=== PATIENT | female | born 1995 | race Caucasian/White ===

== ENCOUNTER 2016-12-04 04:25 | Emergency (ER) | payer BC, OTHER ==
[~2016-12-04] VITALS: Ht 162.6 cm; Wt 59.0 kg
[2016-12-04 04:33] VITALS: BP 115/72
[2016-12-04] MEDS ORDERED: JOLETAB PO (04:36)
== END 2016-12-04 05:34 | disposition left against medical advice (07) ==
LOC: M ED 05:11
DX: R10.9 Unspecified abdominal pain (principal); Z53.21 Procedure and treatment not carried out due to patient leaving prior to being seen by health care provider

== ENCOUNTER → 2016-12-04 | Outpatient (CLI) | payer OTHER ==
[~2016-12-04] MED LIST: JOLETAB PO
[2016-12-04 10:44] LABS: ALBUMIN/GLOBULIN RATIO 1.25 (1.00-1.93); ALKALINE PHOSPHATASE 32 U/L (45-117); ALT/SGPT 20 U/L (12-78); AMYLASE 67 U/L (25-115); ANION GAP 8 MEQ/L (8-16); AST/SGOT 10 U/L (15-37); BILIRUBIN,DIRECT 0.1 MG/DL (0.0-0.2); BILIRUBIN,TOTAL 0.3 MG/DL (0.2-1.0); BLOOD UREA NITROGEN 10 MG/DL (7-18); CALCIUM LEVEL 8.6 MG/DL (8.5-10.1); CARBON DIOXIDE LEVEL 26 MEQ/L (21-32); CHLORIDE LEVEL 106 MEQ/L (98-107); GLOMERULAR FILTRATION RATE > 60.0 (>60); GLUCOSE, FASTING 82 MG/DL (70-105); SODIUM LEVEL 140 MEQ/L (136-145); TOTAL PROTEIN 7.2 GM/DL (6.4-8.2)
--- NOTE | 2016-12-04 10:55 | REP ---
Clinical: Acute abdominal and flank pain. Technique: Lofton scale ultrasound using curved array transducer. Findings: The liver, spleen and pancreas are normal in contour, size, and echogenicity without focal hepatic, splenic or pancreatic lesions identified. The gallbladder is normal without gallstones, wall thickening or pericholecystic fluid. No biliary ductal dilatation is appreciated, and the common bile duct measures 2.9 mm diameter. The kidneys demonstrate innumerable bilateral cysts consistent with the given history of polycystic kidney disease. The right kidney measures approximately 14.9 x 6.4 x 5.6 cm with the largest cyst measuring 6.7 cm maximal diameter and apparently painful with transducer pressure. The left kidney measures 13.0 x 6.4 x 6.7 cm with small scattered cysts up to roughly 1.6 cm. Visualized abdominal aorta normal. No ascites. Impression: 1. A 6.7 cm right renal cyst causing pain with transducer pressure related to patient's right flank pain. 2. Known polycystic kidney disease. 3. Normal appearance to the liver, spleen, pancreas and gallbladder/biliary system. Signed by Zoran Falk MD 12/04/2016 10:47 A
[2016-12-04 12:20] LABS: BASO % 0.7 % (0.0-1.0); EOS % 0.4 % (0.0-3.0); LARGE UNSTAINED CELL # 0.1 K/mm3 (0.0-0.4); LARGE UNSTAINED CELL % 1.1 % (0.0-4.0); LYMPH # 1.6 K/mm3 (1.5-6.5); LYMPH % 24.7 % (24.0-44.0); MEAN CORPUSCULAR HEMOGLOBIN 29.9 pg (27.0-33.0); MEAN CORPUSCULAR HGB CONC 33.6 g/dl (32.0-36.5); MONO # 0.3 K/mm3 (0.0-0.8); MONO % 4.6 % (0.0-5.0); NEUTROPHILS # 4.5 K/mm3 (1.8-7.7); NEUTROPHILS % 68.5 % (36.0-66.0); PLATELET COUNT, AUTOMATED 317 k/mm3 (150-450); RED CELL DISTRIBUTION WIDTH 11.9 % (11.5-14.5); WHITE BLOOD COUNT 6.6 K/mm3 (4.0-10.0)
== END ==
LOC: M LAB 09:24
PROVIDERS: ATTEND Physician Assistant
DX: R10.11 Right upper quadrant pain (principal); Q61.3 Polycystic kidney, unspecified

== ENCOUNTER → 2017-11-25 | Outpatient (REF) | payer OTHER | LOC: M SFHCWAGY 10:22 | DX: Z12.4 Encounter for screening for malignant neoplasm of cervix (principal) ==

== ENCOUNTER → 2017-11-26 | Outpatient (CLI) | payer OTHER | LOC: M WHC 14:01 | DX: N94.6 Dysmenorrhea, unspecified (principal) | CPT/HCPCS: 76856 ==

== ENCOUNTER → 2018-03-11 | Outpatient (CLI) | payer OTHER | LOC: M RAD 07:59 | DX: Q61.2 Polycystic kidney, adult type (principal) | CPT/HCPCS: 76775 ==

== ENCOUNTER → 2018-05-28 | Outpatient (CLI) | payer OTHER ==
[2018-05-28 12:33] LABS: BASO % 0.7 % (0.0-1.0); EOS # 0.2 10^3/uL (0.0-0.50); EOS % 3.1 % (0.0-3.0); HEMATOCRIT 38.3 % (36.0-47.0); HEMOGLOBIN 12.7 g/dl (12.0-15.5); IMMATURE GRANULOCYTE % 0.3 % (0-3.0); LYMPH # 2.1 10^3/uL (1.5-6.5); MEAN CORPUSCULAR HEMOGLOBIN 30.5 pg (27.0-33.0); MEAN CORPUSCULAR HGB CONC 33.2 g/dl (32.0-36.5); MEAN CORPUSCULAR VOLUME 92.1 fl (80.0-96.0); MONO # 0.3 10^3/uL (0.0-0.8); MONO % 4.6 % (0.0-5.0); NEUTROPHILS # 3.5 10^3/uL (1.8-7.7); NEUTROPHILS % 57.3 % (36.0-66.0); PLATELET COUNT, AUTOMATED 242 10^3/uL (150-450); RED BLOOD COUNT 4.16 10^6/uL (4.00-5.40); RED CELL DISTRIBUTION WIDTH 11.8 % (11.5-14.5); WHITE BLOOD COUNT 6.1 10^3/uL (4.0-10.0)
[2018-05-28 13:06] LABS: ALBUMIN/GLOBULIN RATIO 1.18 (1.00-1.93); ALKALINE PHOSPHATASE 35 U/L (45-117); ALT/SGPT 17 U/L (12-78); ANION GAP 8 MEQ/L (8-16); AST/SGOT 11 U/L (7-37); BILIRUBIN,TOTAL 0.3 MG/DL (0.2-1.0); BLOOD UREA NITROGEN 10 MG/DL (7-18); CALCIUM LEVEL 8.7 MG/DL (8.5-10.1); CARBON DIOXIDE LEVEL 28 MEQ/L (21-32); CHLORIDE LEVEL 103 MEQ/L (98-107); CREATININE FOR GFR 0.55 MG/DL (0.55-1.30); FREE T4 0.91 NG/DL (0.76-1.46); GLOMERULAR FILTRATION RATE > 60.0 (>60); GLUCOSE, FASTING 78 MG/DL (70-100); SODIUM LEVEL 139 MEQ/L (136-145); TOTAL PROTEIN 7.4 GM/DL (6.4-8.2)
== END ==
LOC: M WUC 10:06
DX: F41.9 Anxiety disorder, unspecified (principal)
CPT/HCPCS: 84443

== ENCOUNTER → 2018-10-20 | Outpatient (REF) | payer OTHER ==
[2018-10-20 13:47] LABS: HCG, SERUM QUALITATIVE NEGATIVE (NEGATIVE)
== END ==
LOC: M SFHCPLAZ 10:58
PROVIDERS: ATTEND Physician Assistant
DX: N92.6 Irregular menstruation, unspecified (principal)

== ENCOUNTER → 2019-03-02 | Outpatient (CLI) | payer OTHER ==
--- NOTE | 2019-03-02 13:24 | REP ---
Clinical: Polycystic kidney disease. Comparison: 03/11/2018. Technique: Real time morgan scale ultrasound examination using curved array transducer. Findings: Kidneys demonstrate bilateral cysts consistent with a history of polycystic kidney disease. Right kidney measures 15.0 x 5.3 x 5.8 cm with the largest cyst measuring approximately 6.7 x 4.9 x 6.0 cm at the lower pole. Left kidney measures 13.0 x 5.5 x 5.6 cm with the largest cyst measuring approximately 1.8 x 1.6 x 1.8 cm at the lower pole. No significant change from prior examination. No discernible mass lesion or hydronephrosis. Impression: Polycystic kidney disease essentially unchanged from prior examination. Electronically Signed by Zoran Falk MD 03/02/2019 01:16 P
== END ==
LOC: M RAD 12:09
PROVIDERS: ATTEND Internal Medicine Nephrology
DX: Q61.2 Polycystic kidney, adult type (principal)

== ENCOUNTER → 2019-07-25 | Outpatient (CLI) | payer OTHER ==
[2019-07-25 08:53] LABS: BASO % 0.4 % (0.0-1.0); EOS # 0.1 10^3/uL (0.0-0.5); EOS % 1.9 % (0.0-3.0); HEMATOCRIT 37.3 % (36.0-47.0); HEMOGLOBIN 12.7 g/dl (12.0-15.5); LYMPH # 1.8 10^3/uL (1.5-5.0); LYMPH % 24.3 % (24.0-44.0); MEAN CORPUSCULAR HEMOGLOBIN 31.2 pg (27.0-33.0); MEAN CORPUSCULAR VOLUME 91.6 fl (80.0-96.0); MONO # 0.4 10^3/uL (0.0-0.8); MONO % 5.4 % (0.0-5.0); NEUTROPHILS # 5.1 10^3/uL (1.5-8.5); NEUTROPHILS % 67.7 % (36.0-66.0); PLATELET COUNT, AUTOMATED 255 10^3/uL (150-450); RED BLOOD COUNT 4.07 10^6/uL (4.00-5.40); WHITE BLOOD COUNT 7.5 10^3/uL (4.0-10.0)
[2019-07-25 09:17] LABS: CREATININE,RANDOM URINE 43.9 MG/DL; TOTAL PROTEIN,RANDOM URINE 8.7 MG/DL (0.0-12.0)
[2019-07-25 09:21] LABS: ALBUMIN 4.3 GM/DL (3.2-5.2); ALT/SGPT 31 U/L (12-78); BILIRUBIN,TOTAL 0.4 MG/DL (0.2-1.0); BLOOD UREA NITROGEN 8 MG/DL (7-18); CALCIUM LEVEL 9.2 MG/DL (8.5-10.1); CARBON DIOXIDE LEVEL 26 MEQ/L (21-32); CHLORIDE LEVEL 104 MEQ/L (98-107); CREATININE FOR GFR 0.46 MG/DL (0.55-1.30); GLOMERULAR FILTRATION RATE > 60.0 (>60); GLUCOSE, FASTING 73 MG/DL (70-100); POTASSIUM SERUM 3.8 MEQ/L (3.5-5.1); SODIUM LEVEL 137 MEQ/L (136-145); TOTAL PROTEIN 7.6 GM/DL (6.4-8.2)
[2019-07-25 10:27] LABS: RUBELLA IgG QUALITATIVE IMMUNE (IMMUNE)
[2019-07-25 10:56] LABS: HIV 1&2 SCREEN CENTAUR NEGATIVE (NEGATIVE)
[2019-07-25 11:06] LABS: CHLAMYDIA DNA AMPLIFICATION NEGATIVE (NEGATIVE); GC DNA AMPLIFICATION NEGATIVE (NEGATIVE)
== END ==
LOC: M LAB 07:52
PROVIDERS: ATTEND Advanced Practice Midwife
DX: Z34.81 Encounter for supervision of other normal pregnancy, first trimester (principal)

== ENCOUNTER → 2019-07-28 | Outpatient (CLI) | payer OTHER | LOC: M LAB 07:22 | PROVIDERS: ATTEND Advanced Practice Midwife | DX: Z34.82 Encounter for supervision of other normal pregnancy, second trimester (principal) ==

== ENCOUNTER → 2019-09-20 | Outpatient (CLI) | payer OTHER ==
--- NOTE | 2019-09-21 04:45 | REP ---
Clinical: Anatomical evaluation. Comparison: None . Findings: Examination demonstrates a single live intrauterine in variable presentation. motion is identified by technologist. Placenta is noted anterior and grade zero without evidence for placenta previa or abruption. Amniotic fluid volume is normal. Cervix measures 5.2 cm in length and appears closed. Nuchal cord cannot be excluded. Gestational age by current measurements 19 weeks to date with KAYODE 02/12/2020 . FHR equals 149 beats per minute. BPD 4.4 cm 19 weeks 3 days HC 15.9 cm 18 weeks 5 days AC 14.2 cm 19 weeks 4 days FL 3.0 cm 19 weeks 2 days HL 2.9 cm 19 weeks 3 days HC/AC ratio 1.12 Estimated weight 288 grams ( 49th percentile). Anatomical assessment demonstrates normal structures including cranium, choroid plexus, cavum, diaphragm, stomach, cord insertion, bladder, and extremities. Impression: 1. Single live intrauterine in variable presentation demonstrating appropriate interval growth. 2. Nuchal cord cannot be excluded. 3. Limited anatomical assessment warrants reevaluation and follow-up. Electronically Signed by Zoran Falk MD 09/21/2019 04:36 A
== END ==
LOC: M RAD 13:06
PROVIDERS: ATTEND Specialist
DX: Z36.89 Encounter for other specified antenatal screening (principal); Z3A.19 19 weeks gestation of pregnancy

== ENCOUNTER → 2019-10-06 | Outpatient (CLI) | payer OTHER ==
--- NOTE | 2019-10-07 04:21 | REP ---
Clinical: Anatomical evaluation. Comparison: 09/20/2019 . Findings: Examination demonstrates a single live intrauterine in variable presentation. motion is identified by technologist. Placenta is noted anterior and grade zero without evidence for placenta previa or abruption. Amniotic fluid volume is normal. Cervix measures 3.1 cm in length and appears closed. No evidence for nuchal cord. Gestational age by first US 21 weeks 4 days with KAYODE 02/12/2020 . FHR equals 153 beats per minute. Estimated weight 391 grams ( 28th percentile). Anatomical assessment demonstrates normal structures including facial features, lungs, four-chamber heart/ventricular outflow tracts, three-vessel cord, kidneys, spine. Impression: 1. Single live intrauterine in variable presentation demonstrating appropriate estimated weight. 2. In conjunction with prior examination anatomical assessment is complete and normal.
== END ==
LOC: M WHC 13:43
PROVIDERS: ATTEND Advanced Practice Midwife
DX: Z36.2 Encounter for other antenatal screening follow-up (principal); Z3A.21 21 weeks gestation of pregnancy

== ENCOUNTER → 2019-11-17 | Outpatient (REF) | payer OTHER ==
[2019-11-17 13:07] LABS: HEMATOCRIT 28.4 % (36.0-47.0); HEMOGLOBIN 9.6 g/dl (12.0-15.5); MEAN CORPUSCULAR HEMOGLOBIN 31.6 pg (27.0-33.0); MEAN CORPUSCULAR HGB CONC 33.8 g/dl (32.0-36.5); MEAN CORPUSCULAR VOLUME 93.4 fl (80.0-96.0); PLATELET COUNT, AUTOMATED 160 10^3/uL (150-450); RED BLOOD COUNT 3.04 10^6/uL (4.00-5.40); WHITE BLOOD COUNT 7.5 10^3/uL (4.0-10.0)
== END ==
LOC: M PLALAB 08:03
PROVIDERS: ATTEND Advanced Practice Midwife
DX: O35.8XX0 Maternal care for other (suspected) fetal abnormality and damage, not applicable or unspecified (principal)

== ENCOUNTER → 2020-01-25 | Outpatient (REF) | payer OTHER ==
[~2020-01-25] MED LIST changes: +IBUP80TA PO; +OXYC1TAB23 PO; +PRENTAB53 PO
== END ==
LOC: M PLALAB 10:06
PROVIDERS: ATTEND Advanced Practice Midwife
DX: Z34.03 Encounter for supervision of normal first pregnancy, third trimester (principal)

== ENCOUNTER 2020-02-06 09:18 | Inpatient (IN) | payer OTHER ==
[~2020-02-06] VITALS: Ht 162.6 cm; Wt 79.1 kg
[2020-02-06] VITALS (9 sets, daily range): BP systolic 118–136; BP diastolic 71–85
[~2020-02-06 09:18] MED LIST changes: -IBUP80TA PO; -OXYC1TAB23 PO
[2020-02-06] MEDS ORDERED: LR 1,000 ML IV SCH ×3 (09:31→13:45)
[2020-02-06] MEDS ORDERED: LACTATED RINGER'S 1000 ML IV STA (09:31)
[2020-02-06] MEDS ORDERED: BICITRA 30ML SOLN UDC PO ONE (09:45)
[2020-02-06] MEDS ORDERED: ceFAZolin SOD 2 GM in IV 1 EA IV ONE (09:45)
[2020-02-06] MEDS ORDERED: AZITHROMYCIN INJ 500 MG, VIAL MATE ADAPTER 1 EACH in D5W 250 ML IV ONE (09:45)
[2020-02-06 10:21] LABS: HEMATOCRIT 31.1 % (36.0-47.0); HEMOGLOBIN 11.2 g/dl (12.0-15.5); MEAN CORPUSCULAR HEMOGLOBIN 31.9 pg (27.0-33.0); MEAN CORPUSCULAR VOLUME 88.6 fl (80.0-96.0); PLATELET COUNT, AUTOMATED 157 10^3/uL (150-450); RED BLOOD COUNT 3.51 10^6/uL (4.00-5.40); WHITE BLOOD COUNT 8.5 10^3/uL (4.0-10.0)
[2020-02-06] MEDS ORDERED: NALOXONE INJ 0.4MG/1ML VIAL (J2310 PER 1MG) IV PRN ×2 (12:37)
[2020-02-06] MEDS ORDERED: ONDANSETRON 4MG/2ML VIAL IV PRN ×3 (12:37→13:45)
[2020-02-06] MEDS ORDERED: METOCLOPRAMIDE INJ 10MG/2ML VIAL (J2765 PER 1) IV PRN ×2 (12:37→13:45)
[2020-02-06] MEDS ORDERED: NALBUPHINE HCL 10 MG/ML AMP (J2300) IV PRN (12:37)
[2020-02-06] MEDS ORDERED: diphenhydrAMINE 50MG/ML VIAL (J1200) IV PRN (12:37)
[2020-02-06] MEDS ORDERED: OXYTOCIN DRIP 30 UNITS in IV 1 EA IV SCH (13:30)
[2020-02-06] MEDS ORDERED: RHOGAM 300 MCG (1500 IU) INJ (J2790) IM SCH (13:30)
[2020-02-06] MEDS ORDERED: ONDANSETRON 4 MG TAB PO PRN (13:30)
[2020-02-06] MEDS ORDERED: DOCUSATE SODIUM 100 MG CAP PO PRN (13:30)
[2020-02-06] MEDS ORDERED: MEASLES,MUMPS,RUBELLA VACCINE INJ (MMR-II) (90707) SC SCH (13:30)
[2020-02-06] MEDS ORDERED: PERCOCET 5MG/325MG TAB PO PRN ×3 (13:30→13:45)
[2020-02-06] MEDS ORDERED: fentaNYL 100 MCG/2 ML INJECTION (J3010) IV PRN (13:45)
[2020-02-06] MEDS ORDERED: OXYTOCIN 30 UNITS IN 0.9% NaCl 500ML IV BAG (J2590) As Ordered ONE (14:11)
--- NOTE | 2020-02-06 17:23 | HPE ---
DATE OF ADMISSION: 02/06/2020 Marcela is a 24-year-old, 1, para 0, at 38-4/7 weeks gestation, estimated date of confinement (EDC) of 02/16/2020 based on first trimester ultrasound. She presents to labor and delivery today with report of spontaneous rupture of membranes at approximately 0740 hours. She does report the fluid is clear and she reports that she has started to have some mild contractions following her rupture. She reports positive movement, continued leakage of fluid and denies vaginal bleeding. Her care was [facility] at [facility] in the first trimester. Her course complicated by breech presentation, anxiety, polycystic kidney disease, and anemia. OBSTETRIC HISTORY: Primigravida. OBSTETRIC LABS: A+, antibody screen negative, RPR nonreactive. Hepatitis C antibody nonreactive. Hepatitis B surface antigen negative. Rubella immune. Gonorrhea and chlamydia negative. Urine culture no growth. Gestational diabetic screening 156. She refused to repeat a 3-hour glucose test. She did undergo some fingersticks for several weeks and they were noted to be in the normal range and was advised that she could stop checking her fingerstick. GBS is negative. PAST MEDICAL HISTORY: Dysmenorrhea. Anxiety. Polycystic kidney disease. Joint flaccidity. SURGERIES: None. FAMILY HISTORY: Polycystic kidney disease and lung cancer. SOCIAL HISTORY: The patient is . Her is at bedside. She is a nonsmoker. Denies alcohol and drug use. No history of any sexually transmitted infections, and she denies history of abuse physical, sexual and emotional. ALLERGIES: SEASONAL. CURRENT MEDICATIONS: - vitamins OBJECTIVE: Blood pressure 136/85, pulse 74. She is alert and oriented times three. heart rate is 150, moderate variability, positive accelerations, negative decelerations. Contractions at this time are not tracing per EFM. Her abdomen is gravid, breech presentation, which was confirmed by ultrasound in the office. head is in the maternal right upper quadrant. Sterile speculum exam in the office, grossly ruptured, clear fluid, positive Valsalva, positive pooling, positive Nitrazine, positive ferning. Sterile vaginal exam was difficult due to the patient's guarding. ASSESSMENT: Intrauterine at 38-4/7 weeks. heart rate category 1. Grossly ruptured. Early labor. PLAN: Admit patient to labor and delivery. Routine labs. Out of bed ad nadya. Nothing by mouth diet. IV fluid bolus. Preoperative antibiotics have been ordered. Consent for surgery obtained. Dr. Dozier made aware and plan for primary section. The patient and her have had risks, benefits, and alternatives reviewed and have had all of their questions answered.
[2020-02-06] MEDS: KETOROLAC 30 MG/ML 1ML VIAL IV SCH (18:41)
[2020-02-07] MEDS: KETOROLAC 30 MG/ML 1ML VIAL IV SCH ×2 (00:45→06:35)
[2020-02-07 02:00] VITALS: BP 112/67
[2020-02-07 06:00] VITALS: BP 118/68
[2020-02-07 06:50] LABS: HEMOGLOBIN 11.3 g/dl (12.0-15.5); MEAN CORPUSCULAR HEMOGLOBIN 31.7 pg (27.0-33.0); MEAN CORPUSCULAR HGB CONC 35.3 g/dl (32.0-36.5); MEAN CORPUSCULAR VOLUME 89.6 fl (80.0-96.0); PLATELET COUNT, AUTOMATED 174 10^3/uL (150-450); RED BLOOD COUNT 3.57 10^6/uL (4.00-5.40); WHITE BLOOD COUNT 10.8 10^3/uL (4.0-10.0)
[2020-02-07] MEDS ORDERED: IBUP80TA PO (07:26)
[2020-02-07] MEDS ORDERED: OXYC1TAB23 PO (07:26)
[2020-02-07] MEDS: PRENATAL VITAMINS CHEWABLE TABLET PO SCH (09:23)
[2020-02-07 10:00] VITALS: BP 126/73
[2020-02-07] MEDS ORDERED: FENTANYL 2MCG/ML ROPIVACAINE 0.2% IN 0.9% NACL 100ML IVBAG As Ordered ONE (11:53)
[2020-02-07 14:00] VITALS: BP 132/77
[2020-02-07] MEDS: IBUPROFEN 800 MG TAB PO SCH ×2 (14:59→22:18)
[2020-02-07 18:00] VITALS: BP 133/78
[2020-02-08 06:00] VITALS: BP 133/87
[2020-02-08] MEDS: IBUPROFEN 800 MG TAB PO SCH (06:25)
[2020-02-08] MEDS: PRENATAL VITAMINS CHEWABLE TABLET PO SCH (08:24)
--- NOTE | 2020-02-11 14:39 | RO ---
DATE OF PROCEDURE: 02/06/2020 PREPROCEDURE DIAGNOSES: 38 plus weeks gestation, breech, labor, ruptured membranes. POSTPROCEDURE DIAGNOSES: Delivered. PROCEDURE: Primary low transverse section. SURGEON: Dr. Jeferson Dozier MD. COMPRESSED [employer] PILE DRIVER OPERATOR: Maria A White CNM. ANESTHESIA: Spinal. ESTIMATED BLOOD LOSS: 600 mL. URINE OUTPUT: 400 mL. FINDINGS: 1-SADYK-1-OUNCE, 3360 gram female. Apgars 9 and 9. Antony breech. Normal uterus, fallopian tubes and ovaries. DESCRIPTION OF PROCEDURE: Patient taken to the operating room where spinal anesthesia was induced. She was prepped and draped in the sterile fashion in the supine position. A Pearson catheter was placed. A Pfannenstiel incision was made with the scalpel and continued to the fascia. The fascia was nicked and extended. The fascia was dissected off the rectus muscle and the peritoneum cavity was entered. A Mobius retractor was placed. A bladder flap was created. A curvilinear incision was made in the lower uterine segment until clear fluid is noted. This was extended manually. Infant was delivered in the antony breech position using standard maneuvers without difficulty. The cord was doubly clamped and cut. The infant was handed off to the awaiting nurse. The placenta was expressed. The uterus was closed with 0 Vicryl in a running locked fashion. A second imbricating layer of 0 Vicryl was placed. A Mobius tractor was removed. The uterus was closed with #2-0 Vicryl in a running fashion. The fascial was closed with 0 Vicryl in a running fashion. The deep layer was irrigated and closed with #2-0 chromic. The skin was closed with #4-0 Monocryl subcuticular sutures. YOGESH Valencia assisted throughout the procedure from beginning to end. She help create each layer of the incision. She helped delivery the fetus and closed all layers. She was in dispensable to discuss all forms of the procedure.
--- NOTE | 2020-02-12 16:02 | DSES ---
DATE OF ADMISSION: 02/06/2020 DATE OF DISCHARGE: 02/08/2020 A 24-year-old (G) 1, para (P) 0 female at 38 and 4/7 weeks gestation who presents in active labor with spontaneous rupture of membranes. She was in known breech presentation and was scheduled for a section later in the week. HOSPITAL COURSE: On 02/06/2020, the patient was evaluated and found to be in early labor. She had confirmed spontaneous rupture of membranes. Baby was noted to still be in a breech presentation. The decision was made to proceed with a section. On 02/06/2020, she underwent primary section for a viable infant in a breech presentation. Her postoperative course was unremarkable. Her hemoglobin was 11.3 g/dL. She had adequate return of bladder and bowel function. She was deemed stable for discharge on postoperative day number two. ADMISSION DIAGNOSIS: , term, breech, labor. DISCHARGE DIAGNOSIS: Delivered. PROCEDURE: Primary low transverse section. DISPOSITION: The patient will followup with Dr. Dozier in two weeks. Instructions reviewed.
== END 2020-02-08 12:45 | disposition home or self-care (01) | DRG 788 ==
LOC: M LDI 09:18 → M OBS 15:00
PROVIDERS: ADMIT Specialist; ATTEND Specialist
PROC: 10D00Z1 Extraction of Products of Conception, Low, Open Approach (ICD-10-PCS; principal; 2020-02-06 12:30)
DX: O32.1XX0 Maternal care for breech presentation, not applicable or unspecified (principal); Z3A.38 38 weeks gestation of pregnancy; Z37.0 Single live birth

== ENCOUNTER → 2022-07-16 | Outpatient (CLI) | payer OTHER ==
[~2022-07-16] MED LIST changes: +GASTROGRAFIN SOLUTION 30ML (Q9963) As Ordered ONE; +IBUP80TA PO; +OXYC1TAB23 PO
== END ==
LOC: M RAD 08:34
PROVIDERS: ATTEND Nurse Practitioner Family
DX: Q61.2 Polycystic kidney, adult type (principal)